=== PATIENT | female | born 1995 | race Caucasian/White ===

== ENCOUNTER 2018-05-15 00:27 | Emergency (ER) | payer OTHER ==
[~2018-05-15] VITALS: Ht 154.9 cm; Wt 61.6 kg
[2018-05-15 01:07] LABS: BASOPHILS # (AUTO) 0.07 x10^3/uL (0-0.1); BASOPHILS % (AUTO) 1 % (0-1); EOSINOPHILS % (AUTO) 1 % (1-7); LYMPHOCYTES # (AUTO) 4.23 x10^3/uL (1-3.4); LYMPHOCYTES % (AUTO) 51 % (22-44); MD NO; MEAN CORPUSCULAR HEMOGLOBIN 29.7 pg (27.0-34.8); MEAN CORPUSCULAR HGB CONC 34.9 g/dL (32.4-35.8); MEAN CORPUSCULAR VOLUME 85.2 fL (80-100); MEAN PLATELET VOLUME 9.8 fL (7.4-10.4); MONOCYTES # (AUTO) 1.05 x10^3/uL (0.2-0.8); MONOCYTES % (AUTO) 13 % (2-9); NEUTROPHILS # (AUTO) 2.87 x10^3/uL (1.8-6.8); NEUTROPHILS % (AUTO) 35 % (42-75); PLATELET COUNT 213 x10^3/uL (130-400); RED BLOOD COUNT 5.25 x10^6/uL (3.82-5.3); RED CELL DISTRIBUTION WIDTH 14.4 % (9.6-15.2)
[2018-05-15 01:18] LABS: ALANINE AMINOTRANSFERASE 23 U/L (12-78); ALBUMIN 4.1 g/dL (3.4-5.0); ANION GAP 9 mmol/L (5-15); CALCIUM 9.2 mg/dL (8.5-10.1); CHLORIDE 108 mmol/L (98-107)
[2018-05-15 01:23] LABS: ALKALINE PHOSPHATASE 106 U/L (45-117); BILIRUBIN,TOTAL 0.3 mg/dL (0.2-1.0); CREATININE 0.95 mg/dL (0.55-1.02); TOTAL PROTEIN 8.3 g/dL (6.4-8.2)
[2018-05-15] MEDS ORDERED: SODIUM CHLORIDE 0.9% 1,000ML IVBOLUS ONE ×2 (01:30→02:30)
[2018-05-15] MEDS ORDERED: ONDANSETRON 2MG/ML, 2ML ONE (02:07)
[2018-05-15 02:16] VITALS: BP 123/67
[2018-05-15] MEDS ORDERED: ONDANSETRON 2MG/ML, 2ML IVPush ONE (02:30)
[2018-05-15] MEDS ORDERED: ACETAMINOPHEN 500 MG TABLET ONE (02:53)
[2018-05-15 03:00] LABS: MICROSCOPIC AUTO
[2018-05-15] MEDS ORDERED: ACETAMINOPHEN 325 MG TABLET PO ONE (03:00)
[2018-05-15] MEDS ORDERED: ACETAMINOPHEN 500 MG TABLET PO ONE (03:00)
[2018-05-15 03:03] LABS: CULTURE INDICATED? YES
== END 2018-05-15 03:51 | disposition home or self-care (01) ==
LOC: ED 03:44
DX: E86.0 Dehydration (principal); L93.0 Discoid lupus erythematosus; M79.1 Myalgia; M25.50 Pain in unspecified joint
CPT/HCPCS: 36415; 76770; 80053; 81001; 83690; 84703; 85025; 87086; 87147; 96361; 96374; 99285; J2405; J7030

== ENCOUNTER 2018-08-13 14:52 | Emergency (ER) | payer OTHER ==
[~2018-08-13] VITALS: Ht 154.9 cm; Wt 59.4 kg
[2018-08-13] MEDS ORDERED: ONDANSETRON ODT 4 MG PO ONE (15:30)
[2018-08-13] MEDS ORDERED: OXYcodone/APAP 5/325MG TABLET PO ONE (15:30)
[2018-08-13] MEDS ORDERED: ONDANSETRON ODT 4 MG ONE (15:33)
[2018-08-13] MEDS ORDERED: OXYcodone/APAP 5/325MG TABLET ONE (15:33)
[2018-08-13 15:43] LABS: BASOPHILS # (AUTO) 0.04 x10^3/uL (0-0.1); BASOPHILS % (AUTO) 0 % (0-1); EOSINOPHILS # (AUTO) 0.83 x10^3/uL (0-0.4); EOSINOPHILS % (AUTO) 7 % (1-7); LYMPHOCYTES # (AUTO) 2.45 x10^3/uL (1-3.4); LYMPHOCYTES % (AUTO) 21 % (22-44); MD NO; MEAN CORPUSCULAR HEMOGLOBIN 29.5 pg (27.0-34.8); MEAN CORPUSCULAR HGB CONC 33.5 g/dL (32.4-35.8); MEAN CORPUSCULAR VOLUME 88.2 fL (80-100); MEAN PLATELET VOLUME 9.2 fL (7.4-10.4); MONOCYTES # (AUTO) 0.68 x10^3/uL (0.2-0.8); MONOCYTES % (AUTO) 6 % (2-9); NEUTROPHILS # (AUTO) 7.53 x10^3/uL (1.8-6.8); NEUTROPHILS % (AUTO) 65 % (42-75); PLATELET COUNT 276 x10^3/uL (130-400); RED BLOOD COUNT 4.99 x10^6/uL (3.82-5.3); RED CELL DISTRIBUTION WIDTH 13.8 % (9.6-15.2)
[2018-08-13 15:56] LABS: ALBUMIN 3.7 g/dL (3.4-5.0); ANION GAP 7 mmol/L (5-15); CALCIUM 8.4 mg/dL (8.5-10.1); CHLORIDE 108 mmol/L (98-107)
[2018-08-13 16:03] LABS: CREATININE 0.85 mg/dL (0.55-1.02)
[2018-08-13 16:39] LABS: CULTURE INDICATED? NO; MICROSCOPIC NOT IND
[2018-08-13 16:41] VITALS: BP 106/45
== END 2018-08-13 16:52 | disposition home or self-care (01) ==
LOC: ED 16:35
DX: R10.31 Right lower quadrant pain (principal)
CPT/HCPCS: 36415; 76830; 80048; 81003; 82040; 84703; 85025; 99285; Q0162

== ENCOUNTER 2018-12-28 20:05 | Emergency (ER) | payer OTHER, MEDICAID ==
[~2018-12-28] VITALS: Ht 154.9 cm; Wt 61.6 kg
[~2018-12-28 20:05] MED LIST: GABA600T PO; HYDR200T72 PO; MELO15TA24 PO; MODA200T2 PO; TRAZ-137 PO
[2018-12-28 20:15] VITALS: BP 125/84
[2018-12-28] MEDS ORDERED: LIDOCAINE-MPF 1%, 5ML ONE (20:44)
[2018-12-28] MEDS ORDERED: LIDOCAINE-MPF 1%, 5ML INFIL ONE (21:00)
[2018-12-28] MEDS ORDERED: BACITRACIN ZINC OINT 500U/GM, 0.9 GM ONE (21:20)
== END 2018-12-28 21:38 ==
LOC: ED 21:24
DX: S61.214A Laceration without foreign body of right ring finger without damage to nail, initial encounter (principal); Z79.899 Other long term (current) drug therapy; Z88.1 Allergy status to other antibiotic agents; W45.8XXA Other foreign body or object entering through skin, initial encounter; Y93.89 Activity, other specified; Y92.098 Other place in other non-institutional residence as the place of occurrence of the external cause; Y99.8 Other external cause status
CPT/HCPCS: 12041; 99284

== ENCOUNTER 2019-06-03 13:38 | Emergency (ER) | payer MEDICAID, OTHER ==
[~2019-06-03] VITALS: Ht 154.9 cm; Wt 68.2 kg
[2019-06-03 14:35] VITALS: BP 127/69
== END 2019-06-03 15:54 | disposition home or self-care (01) ==
LOC: ED 15:45
DX: M25.512 Pain in left shoulder (principal)
CPT/HCPCS: 99283

== ENCOUNTER 2019-12-08 16:06 | Emergency (ER) | payer OTHER ==
[~2019-12-08] VITALS: Ht 154.9 cm; Wt 70.0 kg
[~2019-12-08 16:06] MED LIST changes: -TRAZ-137 PO; +TRAZ-175 PO
--- NOTE | 2019-12-08 16:17 | NUR ---
THIS RN PRESENT DURING ECG
[2019-12-08 17:13] LABS: BASOPHILS # (AUTO) 0.07 x10^3/uL (0-0.1); BASOPHILS % (AUTO) 1 % (0-1); EOSINOPHILS # (AUTO) 0.14 x10^3/uL (0-0.4); EOSINOPHILS % (AUTO) 1 % (1-7); LYMPHOCYTES # (AUTO) 3.54 x10^3/uL (1-3.4); LYMPHOCYTES % (AUTO) 28 % (22-44); MD NO; MEAN CORPUSCULAR HEMOGLOBIN 29.6 pg (27.0-34.8); MEAN CORPUSCULAR HGB CONC 33.6 g/dL (32.4-35.8); MEAN PLATELET VOLUME 9.1 fL (7.4-10.4); MONOCYTES # (AUTO) 0.89 x10^3/uL (0.2-0.8); MONOCYTES % (AUTO) 7 % (2-9); NEUTROPHILS # (AUTO) 8.24 x10^3/uL (1.8-6.8); NEUTROPHILS % (AUTO) 64 % (42-75); PLATELET COUNT 309 x10^3/uL (130-400); RED BLOOD COUNT 5.26 x10^6/uL (3.82-5.3); RED CELL DISTRIBUTION WIDTH 12.7 % (9.6-15.2)
[2019-12-08 17:16] LABS: ALBUMIN 4.5 g/dL (3.4-5.0); ANION GAP 9 mmol/L (5-15); CALCIUM 9.4 mg/dL (8.5-10.1); CHLORIDE 105 mmol/L (98-107); CREATININE 1.25 mg/dL (0.55-1.02)
--- NOTE | 2019-12-08 18:49 | NUR ---
PT TO ROOM FROM LOBBY
--- NOTE | 2019-12-08 19:00 | NUR ---
PT STATES LAST TIME VOMITING WAS 1 HOUR AGO
[2019-12-08] MEDS ORDERED: LORazepam 1MG TABLET ONE (19:53)
[2019-12-08] MEDS ORDERED: KETOROLAC 60 MG/2 ML ONE (19:53)
[2019-12-08] MEDS ORDERED: LORazepam 1MG TABLET PO ONE (20:00)
[2019-12-08] MEDS ORDERED: KETOROLAC 30 MG/1 ML IM ONE (20:00)
[2019-12-08 21:37] VITALS: BP 130/80
== END 2019-12-08 21:42 | disposition home or self-care (01) ==
LOC: ED 21:00
DX: M19.90 Unspecified osteoarthritis, unspecified site (principal); M32.9 Systemic lupus erythematosus, unspecified; M79.10 Myalgia, unspecified site; F41.1 Generalized anxiety disorder; R00.0 Tachycardia, unspecified
CPT/HCPCS: 36415; 71045; 80048; 82040; 85025; 93005; 96372; 99285; J1885

== ENCOUNTER 2020-04-15 14:16 | Emergency (ER) | payer OTHER ==
[~2020-04-15] VITALS: Ht 154.9 cm; Wt 73.5 kg
[2020-04-15] MEDS ORDERED: MORPHINE SULFATE 4 MG/ML, 1ML ONE (15:00)
[2020-04-15] MEDS ORDERED: MORPHINE SULFATE 4 MG/ML, 1ML IVPush PRN (15:00)
[2020-04-15] MEDS ORDERED: ONDANSETRON 2MG/ML, 2ML IVPush ONE (15:00)
[2020-04-15] MEDS ORDERED: ONDANSETRON 2MG/ML, 2ML ONE (15:00)
[2020-04-15] MEDS ORDERED: SODIUM CHLORIDE FLUSH 10ML SYR IVF ONE (15:00)
[2020-04-15 15:07] VITALS: BP 104/54
[2020-04-15 15:08] LABS: BASOPHILS # (AUTO) 0.05 x10^3/uL (0-0.1); BASOPHILS % (AUTO) 0 % (0-1); EOSINOPHILS # (AUTO) 0.17 x10^3/uL (0-0.4); EOSINOPHILS % (AUTO) 2 % (1-7); LYMPHOCYTES # (AUTO) 2.04 x10^3/uL (1-3.4); LYMPHOCYTES % (AUTO) 18 % (22-44); MD NO; MEAN CORPUSCULAR HEMOGLOBIN 29.4 pg (27.0-34.8); MEAN CORPUSCULAR HGB CONC 33.6 g/dL (32.4-35.8); MEAN CORPUSCULAR VOLUME 87.6 fL (80-100); MEAN PLATELET VOLUME 9.8 fL (7.4-10.4); MONOCYTES # (AUTO) 0.66 x10^3/uL (0.2-0.8); MONOCYTES % (AUTO) 6 % (2-9); NEUTROPHILS # (AUTO) 8.46 x10^3/uL (1.8-6.8); NEUTROPHILS % (AUTO) 74 % (42-75); PLATELET COUNT 240 x10^3/uL (130-400); RED BLOOD COUNT 5.05 x10^6/uL (3.82-5.3); RED CELL DISTRIBUTION WIDTH 12.8 % (9.6-15.2)
--- NOTE | 2020-04-15 15:09 | NUR ---
PIV PLACED, LABS COLLECTED WITH MOTION PICTURE PHOTOGRAPHER AT BEDSIDE. MEDS ADMIN PER DEC. PT CONNECTED TO MONITORING AND OXYGEN FOR SAFETY. PT HAD PREVIOUSLY AMBULATED TO RESTROOM WITH STEADY GAIT TO PROVIDE URINE SAMPLE. UA COLLECTED AND SENT TO LAB. PT GIVEN WARM BLANKET. CALL LIGHT IN REACH.
[2020-04-15 15:11] LABS: MICROSCOPIC NOT IND
[2020-04-15 15:18] LABS: ALBUMIN 3.7 g/dL (3.4-5.0); ANION GAP 7 mmol/L (5-15); CHLORIDE 108 mmol/L (98-107)
[2020-04-15 15:36] LABS: CREATININE 0.76 mg/dL (0.55-1.02)
--- NOTE | 2020-04-15 15:58 | NUR ---
ALL RESULTS ARE BACK AT THIS TIME. CHART UP FOR RECHECK.
--- NOTE | 2020-04-15 16:35 | NUR ---
MD AT BEDSIDE TO UPDATE PT ON POC.
--- NOTE | 2020-04-15 16:44 | NUR ---
SPOKE WITH [facility] FOR UPDATE ON [facility]. [facility] STATES THEY DO NOT HAVE BLOOD IN THEIR DEPT, WILL LOOK INTO IT. PINK TOP WAS DRAWN WITH INITIAL LAB DRAW, [employer] ATTACHER WAS AT BEDSIDE.
--- NOTE | 2020-04-15 16:49 | NUR ---
ALL RESULTS ARE BACK AT THIS TIME. CHART UP FOR RECHECK.
== END 2020-04-15 17:02 | disposition home or self-care (01) ==
LOC: ED 16:12
DX: O26.891 Other specified pregnancy related conditions, first trimester (principal); R10.2 Pelvic and perineal pain; R10.31 Right lower quadrant pain; R11.0 Nausea; Z88.8 Allergy status to other drugs, medicaments and biological substances; Z3A.01 Less than 8 weeks gestation of pregnancy; Z79.899 Other long term (current) drug therapy
CPT/HCPCS: 36415; 76801; 80048; 81003; 82040; 84702; 85025; 86901; 96374; 96375; 99284; J2270; J2405

== ENCOUNTER 2020-04-22 17:01 | Emergency (ER) | payer OTHER ==
[~2020-04-22] VITALS: Ht 154.9 cm; Wt 73.2 kg
[2020-04-22] MEDS ORDERED: ONDANSETRON ODT 8 MG ONE (17:28)
[2020-04-22] MEDS ORDERED: OXYcodone/APAP 7.5/325MG TABLET ONE (17:28)
[2020-04-22] MEDS ORDERED: OXYcodone/APAP 7.5/325MG TABLET PO ONE (17:30)
[2020-04-22] MEDS ORDERED: ONDANSETRON ODT 8 MG PO ONE (17:30)
--- NOTE | 2020-04-22 17:34 | NUR ---
PT HAS CO VAGINAL BLEEDING. PT STATES "I THINK I AM HAVING A MISCARRIAGE, PASSING CLOTS THE SIZE OF BASEBALLS W CRAMPING". PT STATES GOING THROUGH 4 PADS, WAS SEEN HERE ON SUNDAY FOR SAME COMPLAINT. MEDICATED PER ORDERS.
--- NOTE | 2020-04-22 18:19 | NUR ---
REPORT RECEIVED FROM MARIZOL CADE. PT RESTING IN BED, AWAITING US. CONT TO MONITOR.
[2020-04-22] MEDS ORDERED: SODIUM CHLORIDE 0.9% 1,000ML IVBOLUS ONE (19:00)
--- NOTE | 2020-04-22 19:20 | NUR ---
PT D/C'D PER BRIGIDO. PT VERBALIZED UNDERSTANDING OF D/C ORDERS.
[2020-04-22 19:21] VITALS: BP 102/68
== END 2020-04-22 19:33 | disposition home or self-care (01) ==
LOC: ED 19:20
DX: O03.9 Complete or unspecified spontaneous abortion without complication (principal); R10.2 Pelvic and perineal pain; R11.2 Nausea with vomiting, unspecified
CPT/HCPCS: 36415; 76801; 84702; 99284; Q0162

== ENCOUNTER 2021-01-17 16:31 | Emergency (ER) | payer BC, OTHER ==
[~2021-01-17] VITALS: Ht 154.9 cm; Wt 84.3 kg
--- NOTE | 2021-01-17 17:48 | NUR ---
MECHANICAL INTEGRITY SPECIALIST: CALLED PATIENT FROM LOBBY
[2021-01-17] MEDS ORDERED: LIDOCAINE JELLY 2%, 30GM TP ONE (18:00)
--- NOTE | 2021-01-17 18:42 | NUR ---
Pt given soap stacie enema, tolerated well. Bedside comode available. VSS
--- NOTE | 2021-01-17 18:46 | NUR ---
Report given to Ajit CADE
--- NOTE | 2021-01-17 19:06 | NUR ---
PATIENT HAD SUCCESSFUL BOWEL MOVEMENT. TOLERATED WELL. VITAL SIGNS STABLE. PATIENT CLEARED FOR DISCHARGE. AMBULATORY TO DISCHARGE WITHOTU COMPLICATIONS WITH BELONGINGS. VERBALIZED UNDERSTANDING OF SELF CARE AND FOLLOW UP CARE.
[2021-01-17 19:07] VITALS: BP 112/65
== END 2021-01-17 19:09 | disposition home or self-care (01) ==
LOC: ED 18:15
DX: K59.00 Constipation, unspecified (principal); K60.2 Anal fissure, unspecified
CPT/HCPCS: 74021; 99283

== ENCOUNTER 2021-03-17 22:19 | Inpatient (IN) | payer BC ==
[~2021-03-17] VITALS: Ht 154.9 cm; Wt 82.4 kg
--- NOTE | 2021-03-17 23:27 | NUR ---
PT PRESENTS WITH COUGH AND SHORTNESS OF BREATH FOR 1 DAY, PT STATES THIS FEELS LIKE WHEN SHE HAD PNA BEFORE, PT HAS HISTORY OF ASTHMA AND SAID THAT INHALIOR WAS NOT WORKING, ERP AT BEDSIDE, PT IN GOWN AND HOOKED UP TO ALL THE MONITORS, RESTING ON GURNEY
[2021-03-17] MEDS ORDERED: methylPREDNISolone SOD SUCC 125 MG/2 ML ONE (23:40)
[2021-03-17] MEDS ORDERED: ALBUTEROL/IPRATROPIUM 2.5MG/0.5MG, 3 ML ONE ×2 (23:40→23:41)
[2021-03-18] MEDS ORDERED: ALBUTEROL SULFATE 2.5 MG/3 ML NPPB ONE
[2021-03-18] MEDS ORDERED: SODIUM CHLORIDE 0.9% 1,000ML IVBOLUS ONE
[2021-03-18] MEDS ORDERED: methylPREDNISolone SOD SUCC 125 MG/2 ML IVPB ONE
--- NOTE | 2021-03-18 | NUR ---
20 G IV STARTED TO RIGHT AC, MEDS GIVEN, PT RESTING ON GURNEY, DENIES NEEDS AT THIS TIME
[2021-03-18 00:38] LABS: BASOPHILS % (AUTO) 1 % (0-1); EOSINOPHILS % (AUTO) 1 % (1-7); LYMPHOCYTES % (AUTO) 31 % (22-44); MEAN CORPUSCULAR HEMOGLOBIN 28.8 pg (27.0-34.8); MEAN PLATELET VOLUME 8.9 fL (7.4-10.4); MONOCYTES % (AUTO) 9 % (2-9); NEUTROPHILS % (AUTO) 59 % (42-75); PLATELET COUNT 272 x10^3/uL (130-400); RED BLOOD COUNT 5.01 x10^6/uL (3.82-5.3)
[2021-03-18 00:39] LABS: MD NO
[2021-03-18 00:48] LABS: ALANINE AMINOTRANSFERASE 78 U/L (12-78); ALBUMIN 3.9 g/dL (3.4-5.0); ANION GAP 9 mmol/L (5-15); CALCIUM 9.5 mg/dL (8.5-10.1); CHLORIDE 107 mmol/L (98-107); CREATININE 0.84 mg/dL (0.55-1.02)
[2021-03-18 00:53] LABS: ALKALINE PHOSPHATASE 91 U/L (45-117); BILIRUBIN,TOTAL 0.2 mg/dL (0.2-1.0); TOTAL PROTEIN 8.2 g/dL (6.4-8.2); TROPONIN I < 0.015 ng/mL (0.000-0.045)
[2021-03-18] MEDS ORDERED: ALBUTEROL 0.5%, 20ML ONE (01:22)
[2021-03-18] MEDS ORDERED: ALBUTEROL 0.5%, 20ML NPPB SCH (01:30)
--- NOTE | 2021-03-18 01:46 | NUR ---
PT HOOKED UP TO CONTINUOUS NEB, PT SENT TO CT AND RETURN, RESTING COMFORTABLY ON GURNEY, DENIES NEEDS AT THIS TIME.
[2021-03-18] MEDS ORDERED: OMNIPAQUE 350 MG/ML, 75ML BOTTLE ONE (01:53)
--- NOTE | 2021-03-18 02:24 | NUR ---
BREAK RN: PT AMBULATORY WITH STEADY GAIT WITH THIS RN TO BATHROOM. PT REPORTS MINIMAL TO NO RELIEF OF "TIGHTNESS IN CHEST" FOLLOWING CONTINUOUS BREATHING TX. ERP AWARE. NO ADDITIONAL NEEDS AT THIS TIME.
--- NOTE | 2021-03-18 03:15 | NUR ---
PT completed neb treatment, pt found no relief from symptoms, pt resting on betty, denies needs at this time
--- NOTE | 2021-03-18 04:29 | NUR ---
PT RESTING COMFORTABLY ON GURNEY, DENIES ANY NEEDS AT THIS TIME
[2021-03-18] MEDS ORDERED: ALBUTEROL/IPRATROPIUM 2.5MG/0.5MG, 3 ML IPPB PRN (04:30)
[2021-03-18] MEDS ORDERED: hydrALAzine 20 MG/ML, 1ML IVPush PRN (04:30)
[2021-03-18] MEDS ORDERED: LORazepam 2 MG/ML, 1ML IVPush PRN (04:30)
[2021-03-18] MEDS ORDERED: DOCUSATE 100 MG CAPSULE PO PRN (04:30)
[2021-03-18] MEDS ORDERED: BISACODYL 10 MG SUPP PR PRN (04:30)
[2021-03-18] MEDS ORDERED: OXYcodone IR 5MG TABLET PO PRN (04:30)
[2021-03-18] MEDS ORDERED: POLYETHYLENE GLYCOL 17 GM PACKET PO PRN (04:30)
--- NOTE | 2021-03-18 05:03 | NUR ---
PT RESTING COMFORTABLY ON GURNEY, DENIES ANY NEEDS AT THIS TIME
[2021-03-18] MEDS ORDERED: ENOXAPARIN 40 MG/0.4 ML ONE (06:03)
[2021-03-18] MEDS: AZITHROMYCIN 500 MG in SODIUM CHLORIDE 0.9% 250 ML IV SCH (06:05)
[2021-03-18] MEDS: ENOXAPARIN 40 MG/0.4 ML SQ SCH (06:06)
--- NOTE | 2021-03-18 06:11 | NUR ---
PT GIVEN MEDS, RESTING ON GURNEY, DENIES NEEDS AT THIS TIME
[2021-03-18] MEDS ORDERED: ALBUTEROL SULFATE 2.5 MG/3 ML ONE (06:12)
[2021-03-18] MEDS ORDERED: BUDESONIDE 0.5 MG/2 ML INHA ONE (06:12)
[2021-03-18] MEDS: ALBUTEROL SULFATE 2.5 MG/3 ML NPPB SCH ×5 (06:22→23:00)
--- NOTE | 2021-03-18 06:44 | NUR ---
PT CALLED THIS RN TO ROOM, COMPLAINT OF BURNING IN ARM WITH ANTIBIOTIC INFUSION. PT TEARFUL AND GRABING ARM. RN STOPPED ANTIBIOTIC INFUSION AND CALLED HOSPITALIST, DR. CERVANTES.
--- NOTE | 2021-03-18 06:47 | NUR ---
PT MOVED TO A HOSPITAL, RESTING COMFORTABLY
--- NOTE | 2021-03-18 06:54 | NUR ---
REPORT FROM RAYO BERGERON FOR TRANSFER OF PATIENT CARE.
--- NOTE | 2021-03-18 06:56 | NUR ---
REPORT GIVEN TO RAYO LOPEZ
[2021-03-18] MEDS ORDERED: ALBUTEROL/IPRATROPIUM 2.5MG/0.5MG, 3 ML NPPB SCH (07:00)
--- NOTE | 2021-03-18 07:58 | NUR ---
PATIENT RESTING IN [facility], CONNECTED TO MONITORS, VSS, CALL LIGHT WITHIN REACH, NO FURTHER NEEDS AT THIS TIME. WAITING FOR BED ASSIGNMENT UPSTAIRS, BREAKFAST TRAY ORDERED.
[2021-03-18] MEDS ORDERED: methylPREDNISolone SOD SUCC 40 MG/ML ONE ×2 (08:35→08:45)
[2021-03-18] MEDS ORDERED: GABAPENTIN 300 MG CAPSULE ONE (08:35)
[2021-03-18] MEDS ORDERED: GUAIFENESIN ER 600 MG TABLET ONE (08:35)
[2021-03-18] MEDS ORDERED: FAMOTIDINE 20 MG TABLET ONE (08:35)
[2021-03-18] MEDS: methylPREDNISolone SOD SUCC 40 MG/ML IV SCH ×2 (08:39→16:17)
[2021-03-18] MEDS: GUAIFENESIN ER 600 MG TABLET PO SCH ×2 (08:39→21:45)
[2021-03-18] MEDS: FAMOTIDINE 20 MG TABLET PO SCH ×2 (08:39→21:46)
[2021-03-18] MEDS: GABAPENTIN 300 MG CAPSULE PO SCH ×2 (08:39→21:46)
--- NOTE | 2021-03-18 08:48 | NUR ---
PATIENT MEDICATED PER [employer], BREAKFAST TRAY PROVIDED, VSS, PLAQUENIL REQUESTED FROM PHARMACY TO BE SENT TO FLOOR.
--- NOTE | 2021-03-18 08:54 | NUR ---
ATTEMPTED TO CALL REPORT X1.
[2021-03-18] MEDS: BUDESONIDE 0.5 MG/2 ML INHA INH SCH ×2 (09:00→21:00)
[2021-03-18] MEDS ORDERED: BUDESONIDE 0.5 MG/2 ML INHA INH SCH (09:00)
--- NOTE | 2021-03-18 09:12 | NUR ---
REPORT CALLED TO RAYO VALLEJO FOR TRANSFER OF PATIENT CARE.
--- NOTE | 2021-03-18 09:50 | NUR ---
PATIENT TRANSFERRED TO [facility] IN STABLE CONDITION VIA GURNEY ATTACHED TO [employer] WITH ICE HANDLER. ALL PATIENT BELONGINGS TAKEN TO FLOOR WITH PATIENT.
[2021-03-18 10:00] VITALS: BP 130/81
[2021-03-18] MEDS: HYDROXYCHLOROQUINE 200 MG TABLET PO SCH ×2 (10:03→21:45)
[2021-03-18] MEDS: ACETAMINOPHEN 325 MG TABLET PO PRN ×3 (10:03→21:52)
[2021-03-18 12:13] VITALS: BP 119/72
[2021-03-18 19:18] VITALS: BP 114/74
[2021-03-18] MEDS ORDERED: MAALOX/HYOSCYAMINE/LIDOCAINE 45 ML BTL PO ONE (21:00)
[2021-03-18] MEDS ORDERED: SIMETHICONE 80 MG CHEW TAB PO PRN (21:00)
[2021-03-18] MEDS: LIDOCAINE 4% CREAM 15GM TUBE TP PRN (21:44)
[2021-03-18] MEDS: MONTELUKAST 10 MG TABLET PO SCH (21:45)
[2021-03-18] MEDS: MELATONIN 5 MG TABLET PO PRN (21:51)
[2021-03-18 22:24] LABS: RAPID INFLUENZA A Negative (Negative); RAPID INFLUENZA B Negative (Negative)
[2021-03-19] MEDS: TEMAZEPAM 15 MG CAPSULE PO PRN (00:17)
[2021-03-19] MEDS: methylPREDNISolone SOD SUCC 40 MG/ML IV SCH ×3 (00:17→16:49)
[2021-03-19 02:18] VITALS: BP 111/71
[2021-03-19] MEDS: ALBUTEROL SULFATE 2.5 MG/3 ML NPPB SCH ×7 (02:34→22:50)
[2021-03-19 04:37] LABS: BASOPHILS % (AUTO) 0 % (0-1); EOSINOPHILS % (AUTO) 0 % (1-7); LYMPHOCYTES % (AUTO) 5 % (22-44); MEAN CORPUSCULAR HGB CONC 33.1 g/dL (32.4-35.8); MEAN PLATELET VOLUME 9.2 fL (7.4-10.4); MONOCYTES % (AUTO) 3 % (2-9); NEUTROPHILS % (AUTO) 92 % (42-75); PLATELET COUNT 279 x10^3/uL (130-400); RED BLOOD COUNT 4.63 x10^6/uL (3.82-5.3); RED CELL DISTRIBUTION WIDTH 13.2 % (9.6-15.2)
[2021-03-19 04:47] LABS: ANION GAP 7 mmol/L (5-15); CALCIUM 9.2 mg/dL (8.5-10.1); CHLORIDE 110 mmol/L (98-107); CREATININE 0.91 mg/dL (0.55-1.02)
[2021-03-19] MEDS: AZITHROMYCIN 500 MG in SODIUM CHLORIDE 0.9% 250 ML IV SCH (05:18)
[2021-03-19] MEDS: ENOXAPARIN 40 MG/0.4 ML SQ SCH (05:18)
[2021-03-19 05:42] LABS: MD SCAN
[2021-03-19 06:20] VITALS: BP 123/82
[2021-03-19] MEDS: ONDANSETRON 2MG/ML, 2ML IVPush PRN (06:24)
[2021-03-19] MEDS: HYDROXYCHLOROQUINE 200 MG TABLET PO SCH ×2 (08:45→22:33)
[2021-03-19] MEDS: GUAIFENESIN ER 600 MG TABLET PO SCH ×2 (08:45→22:33)
[2021-03-19] MEDS: LIDOCAINE 4% CREAM 15GM TUBE TP PRN (08:46)
[2021-03-19] MEDS: GABAPENTIN 300 MG CAPSULE PO SCH ×2 (08:46→22:33)
[2021-03-19] MEDS: FAMOTIDINE 20 MG TABLET PO SCH ×2 (08:47→22:33)
[2021-03-19] MEDS: BUDESONIDE 0.5 MG/2 ML INHA INH SCH ×2 (10:25→18:35)
[2021-03-19 11:25] VITALS: BP 108/63
[2021-03-19 18:59] VITALS: BP 141/91
[2021-03-19] MEDS: BENZONATATE 100 MG CAPSULE PO SCH ×2 (19:41→22:33)
[2021-03-19] MEDS: MELATONIN 5 MG TABLET PO PRN (22:34)
[2021-03-20] MEDS: TEMAZEPAM 15 MG CAPSULE PO PRN ×2 (00:19→23:57)
[2021-03-20] MEDS: MONTELUKAST 10 MG TABLET PO SCH ×2 (00:19→20:21)
[2021-03-20] MEDS: methylPREDNISolone SOD SUCC 40 MG/ML IV SCH ×4 (00:19→23:57)
[2021-03-20 03:04] VITALS: BP 101/57
[2021-03-20] MEDS: AZITHROMYCIN 500 MG in SODIUM CHLORIDE 0.9% 250 ML IV SCH (05:34)
[2021-03-20] MEDS: ENOXAPARIN 40 MG/0.4 ML SQ SCH (05:35)
[2021-03-20] MEDS: BUDESONIDE 0.5 MG/2 ML INHA INH SCH ×2 (06:29→19:30)
[2021-03-20] MEDS: ALBUTEROL SULFATE 2.5 MG/3 ML NPPB SCH ×5 (06:29→23:25)
[2021-03-20] MEDS: ONDANSETRON 2MG/ML, 2ML IVPush PRN (06:30)
[2021-03-20 07:14] VITALS: BP 107/65
[2021-03-20] MEDS: FAMOTIDINE 20 MG TABLET PO SCH ×2 (08:53→20:21)
[2021-03-20] MEDS: GABAPENTIN 300 MG CAPSULE PO SCH ×2 (08:53→20:21)
[2021-03-20] MEDS: HYDROXYCHLOROQUINE 200 MG TABLET PO SCH ×2 (08:54→20:21)
[2021-03-20] MEDS: GUAIFENESIN ER 600 MG TABLET PO SCH (08:54)
[2021-03-20 09:10] LABS: ALBUMIN 3.6 g/dL (3.4-5.0); ANION GAP 10 mmol/L (5-15); CALCIUM 9.3 mg/dL (8.5-10.1); CHLORIDE 107 mmol/L (98-107)
[2021-03-20 09:14] LABS: ALANINE AMINOTRANSFERASE 44 U/L (12-78); ALKALINE PHOSPHATASE 72 U/L (45-117); BASOPHILS % (AUTO) 0 % (0-1); BILIRUBIN,TOTAL 0.2 mg/dL (0.2-1.0); CREATININE 0.97 mg/dL (0.55-1.02); EOSINOPHILS % (AUTO) 0 % (1-7); LYMPHOCYTES % (AUTO) 7 % (22-44); MEAN CORPUSCULAR HEMOGLOBIN 28.7 pg (27.0-34.8); MEAN CORPUSCULAR HGB CONC 33.1 g/dL (32.4-35.8); MEAN PLATELET VOLUME 9.7 fL (7.4-10.4); MONOCYTES % (AUTO) 4 % (2-9); NEUTROPHILS % (AUTO) 89 % (42-75); PLATELET COUNT 280 x10^3/uL (130-400); RED BLOOD COUNT 4.61 x10^6/uL (3.82-5.3); RED CELL DISTRIBUTION WIDTH 13.3 % (9.6-15.2); TOTAL PROTEIN 7.2 g/dL (6.4-8.2)
[2021-03-20 09:39] LABS: MD SCAN
[2021-03-20 11:54] VITALS: BP 129/73
[2021-03-20] MEDS: GUAIFENESIN/COD200MG-20MG/10ML LIQUID PO PRN ×2 (12:28→20:27)
[2021-03-20] MEDS: BENZONATATE 100 MG CAPSULE PO SCH ×2 (15:54→20:21)
[2021-03-20] MEDS ORDERED: MAALOX/HYOSCYAMINE/LIDOCAINE 45 ML BTL PO ONE (19:30)
[2021-03-20 19:33] VITALS: BP 108/59
[2021-03-21 02:06] VITALS: BP 114/63
[2021-03-21] MEDS: ENOXAPARIN 40 MG/0.4 ML SQ SCH (06:00)
[2021-03-21 06:34] VITALS: BP 117/66
[2021-03-21] MEDS: ALBUTEROL SULFATE 2.5 MG/3 ML NPPB SCH ×5 (06:45→20:00)
[2021-03-21] MEDS: BUDESONIDE 0.5 MG/2 ML INHA INH SCH ×2 (06:45→20:00)
[2021-03-21] MEDS: HYDROXYCHLOROQUINE 200 MG TABLET PO SCH ×2 (08:24→21:50)
[2021-03-21] MEDS: AZITHROMYCIN 500 MG TABLET PO SCH (08:24)
[2021-03-21] MEDS: methylPREDNISolone SOD SUCC 40 MG/ML IV SCH ×2 (08:25→15:40)
[2021-03-21] MEDS: FAMOTIDINE 20 MG TABLET PO SCH (08:25)
[2021-03-21] MEDS: GABAPENTIN 300 MG CAPSULE PO SCH ×2 (08:25→21:50)
[2021-03-21] MEDS: BENZONATATE 100 MG CAPSULE PO SCH ×3 (08:25→21:00)
[2021-03-21] MEDS: GUAIFENESIN/COD200MG-20MG/10ML LIQUID PO PRN ×2 (08:27→15:40)
[2021-03-21 09:41] LABS: BASOPHILS % (AUTO) 0 % (0-1); EOSINOPHILS % (AUTO) 0 % (1-7); LYMPHOCYTES % (AUTO) 9 % (22-44); MEAN CORPUSCULAR HEMOGLOBIN 28.5 pg (27.0-34.8); MEAN CORPUSCULAR HGB CONC 32.8 g/dL (32.4-35.8); MEAN PLATELET VOLUME 9.3 fL (7.4-10.4); MONOCYTES % (AUTO) 6 % (2-9); NEUTROPHILS % (AUTO) 85 % (42-75); PLATELET COUNT 307 x10^3/uL (130-400); RED BLOOD COUNT 4.88 x10^6/uL (3.82-5.3); RED CELL DISTRIBUTION WIDTH 13.5 % (9.6-15.2)
[2021-03-21 09:52] LABS: ANION GAP 11 mmol/L (5-15); CALCIUM 9.7 mg/dL (8.5-10.1); CHLORIDE 107 mmol/L (98-107); CREATININE 1.03 mg/dL (0.55-1.02)
[2021-03-21 10:04] LABS: MD SCAN
[2021-03-21 11:14] VITALS: BP 124/81
[2021-03-21] MEDS: GUAIFENESIN 200 MG TABLET PO SCH ×3 (12:22→21:49)
[2021-03-21 17:41] LABS: FIO2 ROOM AIR %
[2021-03-21 18:18] VITALS: BP 113/78
[2021-03-21] MEDS: OMEPRAZOLE 20 MG CAPSULE.DR PO SCH (21:49)
[2021-03-21] MEDS: MONTELUKAST 10 MG TABLET PO SCH (21:50)
[2021-03-22] MEDS: methylPREDNISolone SOD SUCC 40 MG/ML IV SCH ×3 (00:26→15:32)
[2021-03-22] MEDS: TEMAZEPAM 15 MG CAPSULE PO PRN (00:26)
[2021-03-22] MEDS: GUAIFENESIN/COD200MG-20MG/10ML LIQUID PO PRN ×3 (00:26→15:32)
[2021-03-22 00:32] VITALS: BP 127/80
[2021-03-22] MEDS: ALBUTEROL SULFATE 2.5 MG/3 ML NPPB SCH ×3 (06:00→14:00)
[2021-03-22] MEDS: GUAIFENESIN 200 MG TABLET PO SCH ×3 (06:10→15:32)
[2021-03-22] MEDS: ENOXAPARIN 40 MG/0.4 ML SQ SCH (06:10)
[2021-03-22] MEDS: OMEPRAZOLE 20 MG CAPSULE.DR PO SCH ×2 (06:10→15:32)
[2021-03-22] MEDS: BUDESONIDE 0.5 MG/2 ML INHA INH SCH (06:45)
[2021-03-22 07:19] VITALS: BP 129/77
[2021-03-22] MEDS: AZITHROMYCIN 500 MG TABLET PO SCH (08:39)
[2021-03-22] MEDS: HYDROXYCHLOROQUINE 200 MG TABLET PO SCH (08:39)
[2021-03-22] MEDS: GABAPENTIN 300 MG CAPSULE PO SCH (08:39)
[2021-03-22] MEDS: BENZONATATE 100 MG CAPSULE PO SCH ×2 (08:40→15:34)
[2021-03-22] MEDS ORDERED: FLUTICASONE/VILANTEROL 200-25MCG/INH INH SCH (13:00)
[2021-03-22 13:10] LABS: BASOPHILS % (AUTO) 0 % (0-1); EOSINOPHILS % (AUTO) 0 % (1-7); LYMPHOCYTES % (AUTO) 10 % (22-44); MEAN CORPUSCULAR HGB CONC 33.1 g/dL (32.4-35.8); MEAN PLATELET VOLUME 9.1 fL (7.4-10.4); MONOCYTES % (AUTO) 5 % (2-9); NEUTROPHILS % (AUTO) 84 % (42-75); PLATELET COUNT 322 x10^3/uL (130-400); RED BLOOD COUNT 4.89 x10^6/uL (3.82-5.3); RED CELL DISTRIBUTION WIDTH 13.4 % (9.6-15.2)
[2021-03-22 13:13] LABS: ALANINE AMINOTRANSFERASE 33 U/L (12-78); ALBUMIN 3.5 g/dL (3.4-5.0); ANION GAP 10 mmol/L (5-15); CALCIUM 9.2 mg/dL (8.5-10.1); CHLORIDE 105 mmol/L (98-107); CREATININE 0.92 mg/dL (0.55-1.02)
[2021-03-22 13:15] LABS: ALKALINE PHOSPHATASE 74 U/L (45-117); BILIRUBIN,TOTAL 0.2 mg/dL (0.2-1.0); TOTAL PROTEIN 7.3 g/dL (6.4-8.2)
[2021-03-22 13:40] LABS: MD SCAN
[2021-03-22] MEDS ORDERED: GUAI200T37 PO (14:38)
[2021-03-22] MEDS ORDERED: OMEP-110 PO (14:38)
[2021-03-22] MEDS ORDERED: PRED20TA PO (14:38)
[2021-03-22] MEDS ORDERED: MONT10TA17 PO (14:38)
[2021-03-22 15:59] VITALS: BP 137/84
== END 2021-03-22 18:15 | disposition home or self-care (01) | DRG 189 ==
LOC: ED 03-18 00:11 → EDIP 03-18 03:37 → 4WST 03-18 09:54
PROVIDERS: ADMIT Internal Medicine; ATTEND Hospitalist
DX: J96.01 Acute respiratory failure with hypoxia (principal); J45.52 Severe persistent asthma with status asthmaticus; Z68.41 Body mass index [BMI] 40.0-44.9, adult; M32.9 Systemic lupus erythematosus, unspecified; T38.0X5A Adverse effect of glucocorticoids and synthetic analogues, initial encounter; E66.9 Obesity, unspecified; D72.829 Elevated white blood cell count, unspecified; Y92.89 Other specified places as the place of occurrence of the external cause; Z88.8 Allergy status to other drugs, medicaments and biological substances; Z88.1 Allergy status to other antibiotic agents; K21.9 Gastro-esophageal reflux disease without esophagitis; R00.0 Tachycardia, unspecified
CPT/HCPCS: 36415; 36600; 84145; 87400; 96360; 96361; 99291; J7613; J7626; 71045; 71275; 80048; 80053; 82803; 83605; 83735; 84100; 84484; 85025; 85379; 87040; 93005; 93306; 94640; G0378; J0456; J1650; J2405; Q9967; J2920; J2930; J7030; J7050